=== PATIENT | male | born 1980 | race Caucasian/White ===

== ENCOUNTER → 2024-07-20 13:58 | Outpatient (REF) | payer OTHER, SELFPAY | LOC: HWRAD 13:58 | PROVIDERS: ATTENDING PHYSICIAN Family Medicine | DX: M25.511 Pain in right shoulder (principal); R29.898 Other symptoms and signs involving the musculoskeletal system | CPT/HCPCS: 36415; 73030 ==

== ENCOUNTER → 2024-08-11 09:03 | Outpatient (REF) | payer OTHER, SELFPAY | LOC: EMG 09:03 | PROVIDERS: ATTENDING PHYSICIAN Physician Assistant Surgical; FAMILY PHYSICIAN Family Medicine | DX: S43.431A Superior glenoid labrum lesion of right shoulder, initial encounter (principal); M75.41 Impingement syndrome of right shoulder; R20.0 Anesthesia of skin | CPT/HCPCS: 95886; 95909 ==